=== PATIENT | male | born 1995 | race Caucasian/White ===

== ENCOUNTER 2017-08-04 21:15 | Emergency (ER) | payer OTHER, SELFPAY ==
[2017-08-04 21:17] VITALS: BP 140/80; PULSE 88; RESP 15; TEMP 36.8; BMI 28.9
--- NOTE | 2017-08-04 21:31 | CT_ITS ---
STUDY: CT ABDOMEN AND PELVIS WITHOUT CONTRAST REASON FOR EXAM: Male, 22 years old. Left flank and back pain for one week. RADIATION DOSAGE (If Supplied By Facility): CTDIvol = ( 12.99 ) mGy, DLP = ( 739.85 ) mGycm TECHNIQUE: Transaxial images were obtained from the dome of the diaphragm to the symphysis pubis without oral contrast, and without intravenous contrast. Sagittal and coronal images were reconstructed. Individualized dose optimization techniques were used for this CT. COMPARISON: None. FINDINGS: The visualized lung bases are unremarkable. The visualized portions of the heart are within normal limits. Normal liver. Normal gallbladder and extrahepatic biliary system. Normal spleen. Normal pancreas. Normal bilateral adrenal glands. Normal right kidney. Normal left kidney. Normal visualized stomach. Normal small intestine. Normal colon. There is non-visualization of the appendix. Normal abdominal aorta. Normal inferior vena cava. Normal retroperitoneum. Normal urinary bladder. There is a phlebolith within the pelvis left of midline. There is a small umbilical hernia containing fat. There are bilateral L5 pars defects. CT/Abdomen/Pelvis without Cont IMPRESSION: Bilateral L5 pars defects. Small fat-containing umbilical hernia. Electronically Signed: Nery Brock MD at 22:30 EST Tel , Service support ,
[2017-08-04] MEDS: 0.9% Normal Saline 1,000 ML 250 ML IV (21:56)
[2017-08-04] MEDS: Ketorolac 30 MG/ML Syringe IV (21:56)
[2017-08-04 22:06] LABS: Anion Gap 6 (5-15); BUN 14 mg/dL (7-18); BUN/Creat Ratio 14.8 RATIO (10-20); Calcium,Total 8.9 mg/dL (8.5-10.1); Chloride 106 mmol/L (98-107); Creatinine, Serum 0.95 mg/dL (0.70-1.30); EST Glomerular Filtration Rate 107 mL/min (>60); Est Glom Filt Rate - Afr Amer 130 mL/min (>60); Estimated Creatinine Clearance 148.25 ml/min; Glucose 95 mg/dL (74-106); Potassium 3.6 mmol/L (3.5-5.1); Sodium Level 142 mmol/L (136-145)
[2017-08-04 22:51] LABS: Bacteria 0 SEEN /hpf (None Seen); Red Blood Cells-Urine 0 SEEN /hpf (0-5); Squamous Epithelial Cells - UA 0 SEEN /hpf (0-5)
[2017-08-04 22:53] LABS: Color, Urine Yellow (Yellow); Glucose, Dipstick Normal (Normal); Ketone-Dipstick 5 mg/dl (Negative); Leukocyte Esterase-Dipstick 25 /ul (Negative); Nitrite-Dipstick Negative (Negative); Occult Blood-Urine Negative /ul (Negative); Protein-Dipstick Negative (Negative); Urine Bilirubin Dipstick Negative (Negative); Urine Clarity Sl. Cloudy (Clear); Urine Urobilinogen 1 mg/dl (Normal)
[2017-08-04 23:02] LABS: Mucous, Urine 2+ /hpf (<or=2+)
[2017-08-04 23:03] LABS: White Blood Cells 5-10 SEEN /hpf (0-5)
--- NOTE | 2017-08-04 23:08 | ED.VISSUMM ---
- ER Visit Summary Date of Service: 08/04/17 Chief Complaint: Worsening left flank/abdominal pain History of Present Illness: The patient is a 22 M who reports pain left flank that started 1 week ago. He states the pain has intensified significantly. Mother states he reported nausea. He denies nausea. He denies any vomiting or diarrhea. There is no history of dysuria, frequency, urgency or hematuria. There is no history of renal ureterolithiasis. Sister has history of spongy kidney. There is no history of trauma. There is no position of comfort. He denies any exacerbating, precipitating or alleviating factors. He has taken nothing for the pain. He denies rash. He denies any chest pain, shortness of breath, cough or difficulty breathing. He did have prior episode. He did not seek medical attention since the pain was not as severe as presently. Physical Examination: He appears uncomfortable. Vital signs are marked for an elevated blood pressure 140/80. Vital signs are otherwise unremarkable. Head is atraumatic normocephalic. Pupils are equal round reactive. Extraocular muscles are intact. TMs are pearly white with landmarks noted. Nares patent with no drainage. Posterior pharynx without erythema or exudate. Uvula is midline. There is no dysphonia or dysphasia. Trachea is midline. There is no stridor with auscultation of the neck. Heart is regular without murmur, gallop or rub. S1 and S2 are normal. Lungs are clear to auscultation with good movement of air bilaterally. Abdomen is soft nontender with decreased bowel sounds. He has a small umbilical defect. There is no tenderness. There are no skin lesions to suggest herpes varicella-zoster. He has no CVA tenderness. He has no midline back pain. Test Results: BMP is unremarkable. UA is positive for leukoesterase and ketones on macro 25 and 5 respectively. Microscopic reveals 5-10 WBCs with no RBCs, epithelial cells or bacteria. CT of the flank reveals bilateral L5 pars defect with a small umbilical hernia. There is no evidence of renal or ureterolithiasis. There is no evidence of hydronephrosis. Emergency Department Course and Treatment: IV was established and was treated with 30 mg of Toradol IV push. Because he has flank pain that is not alleviated by anything or exacerbated by anything a CT of the abdomen and pelvis without contrast was obtained to evaluate for ureterolithiasis. UA and BMP were obtained to assess for infection and kidney function. Treatment Plan: Prescription for anti-inflammatory agent since there is no contraindication Disposition: Discharged to home with appropriate home-going instructions Impression: Flank pain of unknown etiology Bilateral L5 pars defect Small reducible umbilical hernia This note was generated with [employer] dictation software. It may contain incorrect words, spelling, and punctuation that were not noted in review of the chart prior to signing ED Disposition - Plan for ED Patient: Disposition: Home or Assisted Living Chief Complaint: Flank Pain Instructions: ED Flank Pain Uncertain Cause, What Is a Hernia? Prescriptions: Naproxen [Naprosyn] 500 mg PO BID #10 tab Referrals: Silvestre Santamaria [Primary Care Provider] - 3-5 Days if not improving
[2017-08-04 23:49] VITALS: PULSE 81; RESP 16; O2SAT 97
== END 2017-08-04 23:41 | disposition home or self-care (01) ==
PROVIDERS: Emergency Provider Emergency Medicine; Family Provider Family Medicine; PCP Family Medicine
DX: R10.9 Unspecified abdominal pain (principal); K42.9 Umbilical hernia without obstruction or gangrene; M47.816 Spondylosis without myelopathy or radiculopathy, lumbar region
CPT/HCPCS: 74176; 80048; 81001; 99283; J7030; A4216